=== PATIENT | male | born 1975 | race Hispanic/Latino ===

== ENCOUNTER 2017-04-24 08:21 | Inpatient (IN) | payer SELFPAY ==
[2017-04-24] MEDS ORDERED: Dexamethasone 4 mg/ml Vial ONE ×3 (09:08→12:05)
[2017-04-24] MEDS ORDERED: Ketorolac Tromethamine 30 MG/ML VIAL ONE (09:08)
[2017-04-24] MEDS ORDERED: Lidocaine Viscous Sol 2% 15 ml UD Cup ONE (09:12)
[2017-04-24] MEDS ORDERED: Mag-Al 1200 mg/1200 mg/30 ML UDCUP ONE (09:12)
[2017-04-24 09:30] LABS: Hematocrit 45.8 % (42.0-52.0); Mean Platelet Volume 9.6 fL (7.4-10.4); Red Blood Cell (RBC) Count 5.22 mill/uL (4.70-6.10); White Blood Cell (WBC) Count 22.2 thou/uL (4.8-10.8)
[2017-04-24 09:51] LABS: Band 22 % (5-11); Neutrophil 58 % (42-75); Reactive Lymphocytes 1 % (0-10)
--- NOTE | 2017-04-24 10:03 | CT ---
CT NECK WITH CONTRAST: Multiple axial tomograms were obtained through the neck with IV enhancement. Multiplanar reconstruc tion. HISTORY: Sore throat and difficulty swallowing. Fever. FINDINGS: Parotid gland, submandibular glands appear unremarkable. There is a 6-7 mm low dense nodule in the right lobe of thyroid. Nasopharynx unremarkable. There is enlargement of the palatine tonsils bilaterally. There is a small low-density focus measur ing 1.0 x 0.5 cm in the left peritonsillar area which could potentially represent a small developing peritonsillar abscess, although this is too small to represent a drainable abscess at this time. M ild enlargement of the lingual tonsils. Pharyngeal tonsils are not significant enlarged. The parapharyngeal space and retropharyngeal space appear unremarkable. Inspector Chief space. Carotid space unremarkable. Hypopharynx unremarkable. There are secretions seen in the hypopharynx. Larynx and glottic regions unremarkable. Lung apices are clear. The paranasal sinuses are well aerated; however, there is mucosal thickening in the floor of both ma xillary antra. Visualized mastoid air cells are clear. Review of the lymph node levels reveals mild prominence of level I submandibular nodes. They are 1 to 1.2 cm nodes bilaterally. There is adenopathy seen at level II bilaterally. Large jugulodigastric lymph nodes are seen on bot h sides measuring over 2 cm. No significant level III lymph nodes. There are a few scattered level IV nodes along the vascular chain bilaterally. Scattered nonspecific level V lymph nodes. IMPRESSION: Enlarged palatine tonsils. A low-density focus seen in the peritonsillar region on the left could p otentially represent a developing abscess, although this is not a drainable abscess at this time. T here is associated cervical adenopathy with adenopathy being especially prominent in the jugulodigas tric level II regions bilaterally. Infectious tonsillitis would be suspected given the history of f ever. Recommend close followup to ensure clearing. Tonsillar neoplasm is not excluded. POS: TAZ
[2017-04-24 10:30] LABS: ALT (SGPT) 28 U/L (8-55); AST (SGOT) 22 U/L (5-34); Alkaline Phosphatase 83 U/L (40-150); Anion Gap 12 mmol/L (10-20); BUN (Urea Nitrogen) 24 mg/dL (8.9-20.6); Bilirubin, Total 0.7 mg/dL (0.2-1.2); Calc. Creatinine Clearance 0 mL/min (70-130); Calcium 9.1 mg/dL (7.8-10.44); Carbon Dioxide 23 mmol/L (22-29); Chloride 108 mmol/L (98-107); Estimated GFR-MDRD Greater than 90; Globulin 3.9 g/dL (2.4-3.5); Protein, Total 7.6 g/dL (6.0-8.3)
[2017-04-24] MEDS ORDERED: Ampicillin/Sulbactam 3 GM in Sodium Chloride 0.9% 100 ML IVPB SCH (10:45)
[2017-04-24 12:39] VITALS: BMI 34.9
[2017-04-24] MEDS ORDERED: Acetaminophen 325 MG TAB PO PRN ×2 (12:42→13:07)
[2017-04-24] MEDS ORDERED: Ondansetron ODT 4 MG TAB PO PRN ×2 (12:42→13:07)
[2017-04-24] MEDS ORDERED: Ondansetron HCl/PF 4 MG/2 ML Vial IVP PRN ×2 (12:42→13:07)
[2017-04-24] MEDS ORDERED: Sodium Chloride 0.9% 1,000 ML IV SCH (12:45)
[2017-04-24] MEDS ORDERED: Diabetic Tussin 200 MG/10 ML UDCUP PO PRN (13:07)
[2017-04-24] MEDS ORDERED: hydrALAZINE 20 MG/ML VIAL SLOW IVP PRN (13:07)
[2017-04-24] MEDS ORDERED: Milk Of Magnesia 30 ML UDCUP PO PRN (13:07)
[2017-04-24] MEDS ORDERED: Chloraseptic Spray 180 ml Bottle PO PRN (13:07)
[2017-04-24] MEDS ORDERED: Loratadine 10 MG TAB PO PRN (13:07)
[2017-04-24] MEDS ORDERED: Artificial Tears 18 DROP/0.9 ML EA EYE PRN (13:07)
[2017-04-24] MEDS ORDERED: Senokot 8.6 MG TAB PO PRN (13:07)
[2017-04-24] MEDS ORDERED: Sodium Chloride 0.65% Nasal 44 ML BOT EA NARE PRN (13:07)
[2017-04-24] MEDS ORDERED: Mag-Al 1200 mg/1200 mg/30 ML UDCUP PO PRN (13:07)
[2017-04-24] MEDS ORDERED: HYDROcodone/Acetaminophen 5/325 mg Tablet PO PRN (13:07)
[2017-04-24] MEDS ORDERED: Zolpidem Tartrate 5 MG TAB PO PRN (13:07)
[2017-04-24] MEDS ORDERED: Eucerin (Mineral Oil/Petrolatum,White) 30 gm Jar TOP PRN (13:07)
[2017-04-24] MEDS ORDERED: Loperamide HCl 2 MG CAP PO PRN (13:07)
[2017-04-24] MEDS ORDERED: Ketorolac Tromethamine 30 MG/ML VIAL IVP PRN (13:09)
[2017-04-24] MEDS ORDERED: Iopamidol 370 76% 100 ML VIAL ONE (13:27)
[2017-04-24] MEDS ORDERED: Labetalol HCl 100 MG/20 ML VIAL SLOW IVP PRN (14:02)
--- NOTE | 2017-04-24 14:59 | HP ---
PRIMARY CARE PHYSICIAN: [facility] call admission. REASON FOR ADMISSION: Tonsillitis. HISTORY OF PRESENT ILLNESS: A 41-year-old male with no significant medical history who cam e to emergency room for evaluation of increasing sore throat for the last 3 days. The patient went to outpatient clinic and received penicillin injection, but he was not feeling better. He was havin g fever with chills. He was having sore throat. He was having difficulty to eat and swallow. The patient was also reporting that his pain medication was not taking care of his pain. He denies any stridor. He denies any nausea or vomiting. He denies any cough. He denies any chest pain, palpita tion, cough or shortness of breath. In the emergency room, the patient had CT soft tissue neck which showed enlarged palatine tonsils an d there was question of developing abscess. There was cervical lymphadenopathy, ENT doctor was noti fied. At this time, we are admitting this patient for acute tonsillitis and poor p.o. intake and th e patient is not able to swallow because of acute tonsillitis for hydration. REVIEW OF SYSTEMS: The following complete review of systems was negative, unless otherwise mentione d in the HPI or below: Constitutional: Weight loss or gain, ability to conduct usual activities. Skin: Rash, itching. Eyes: Double vision, pain. ENT/Mouth: Nose bleeding, neck stiffness, pain, tenderness. Cardiovascular: Palpitations, dyspnea on exertion, orthopnea. Respiratory: Shortness of breath, wheezing, cough, hemoptysis, fever or night sweats. Gastrointestinal: Poor appetite, abdominal pain, heartburn, nausea, vomiting, constipation, or diar shaq. Genitourinary: Urgency, frequency, dysuria, nocturia. Musculoskeletal: Pain, swelling. Neurologic/Psychiatric: Anxiety, depression. Allergy/Immunologic: Skin rash, bleeding tendency. Please see my HPI for pertinent positive and negative. All other review of systems reviewed and neg ative except as mentioned in the HPI. PAST MEDICAL HISTORY: Hypertension. PAST SURGICAL HISTORY: [place]grady teeth removal, tonsillectomy. PAST PSYCHIATRIC HISTORY: Reviewed and negative. SOCIAL HISTORY: Patient drinks alcohol on weekend. He smokes cigarettes. He denies any other illi cit drug abuse. FAMILY HISTORY: No strong family history of premature coronary artery disease, stroke or cancer. ALLERGIES: No known drug allergies. CURRENT HOME MEDICATIONS: The patient was taking Tylenol as needed basis. EMERGENCY ROOM COURSE: The patient is given Unasyn 3 grams, Toradol 60 mg, Decadron 10 mg, IV fluid 1 liter. The patient was given another dose of Decadron 10 mg, Toradol 30 mg, GI cocktail and IV f luid. PHYSICAL EXAMINATION: VITAL SIGNS: On arrival, blood pressure 152/89, pulse 112, respiratory rate 18, temperature 98.4, s aturation 96% on room air, and weight 104.3 kilograms. GENERAL: Patient is currently alert, awake, no obvious acute distress. HEAD: Normocephalic, atraumatic. EYES: Pupils round, reactive to light. Extraocular muscles intact. ENT: Oropharynx within normal limits. Tonsils are enlarged bilaterally with exudates. Lymph nodes palpable. NECK: Cervical lymphadenopathy, no JVD, no thyromegaly, no carotid bruits. LUNGS: Clear to auscultation without any rhonchi or rales. CARDIAC: S1, S2 regular without any murmur. ABDOMEN: Soft, bowel sounds present, nontender, nondistended. No organomegaly, no mass, no suprapu bic tenderness. BACK: Examination unremarkable, no CVA tenderness. EXTREMITIES: Upper extremity passive movements of all joints are normal. Lower extremity, no edema . Good peripheral pulsation. SKIN: No skin rash. HEMATOLOGICAL SYSTEM: No lymphadenopathy. PSYCHIATRIC: Normal affect. IMAGING AND SIGNIFICANT LABORATORY DATA: 1. CT soft tissue reported as enlarged palatine tonsil, peritonsillitis with developing abscess, bu t no drainable abscess at this point, cervical lymphadenopathy. 2. CBC: WBC 22.2, hemoglobin 15.3, platelet 194 with bandemia 22. BMP: Sodium 140, potassium 3.4 , chloride 108, carbon dioxide 23, BUN 24, creatinine 0.85, calcium 9.1. 3. LFT: AST 22, ALT 28, alkaline phosphatase 83, albumin 3.7. ASSESSMENT AND PLAN/IMPRESSION: 1. Acute peritonsillitis with developing abscess with sepsis. We will consult ENT. I spoke with E NT doctor and he reports that at this point patient does not need any surgery. He should get better with steroid as well as empiric antibiotic therapy. We will check streptococcal group A screen. T he patient will be on vancomycin and Zosyn as well as clindamycin and we will control his pain with Toradol and morphine. We will also continue with Decadron 4 mg IV q.8 hourly 3 doses today. 2. Dysphagia secondary to severe tonsillitis. 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 3. Dehydration. Patient will be given IV fluids with dextrose normal saline with KCl at 125 mL per hour. 4. Hypertension. The patient's blood pressure will be controlled with hydralazine and labetalol p. r.n. basis. At this point, the patient's blood pressure is high because of steroid as well as IV fl uid and pain. 5. Hypokalemia. We are replacing potassium with IV fluid and we will repeat basic metabolic panel tomorrow. 6. Obesity with body mass index 35. Weight loss education given. Healthy lifestyle measures discu ssed with the patient. 7. Tobacco and alcohol abuse. Counseling given to avoid smoking as well as alcohol abuse. 8. Deep venous thrombosis prophylaxis, Lovenox 40 mg subcu daily. 9. Gastrointestinal prophylaxis, Pepcid 20 mg p.o. b.i.d. 10. Code status: The patient is FULL CODE. Patient does not have any surrogate decision maker. Disposition plan based on clinical course. We are expecting patient's stay in hospital more than 2 midnights. Plan of care discussed with the patient in detail.
[2017-04-24] MEDS: Vancomycin HCl 1.5 GM in Sodium Chloride 0.9% 250 ML 300 ML IVPB SCH ×2 (16:40→22:46)
[2017-04-24] MEDS: Piperacillin/Tazobactam 4.5 GM in Sodium Chloride 0.9% 100 ML IVPB SCH ×2 (16:40→23:28)
[2017-04-24] MEDS: D5 0.9% NS w/ 20 mEq KCl 1,000 ML IV SCH ×2 (16:40→21:16)
[2017-04-24] MEDS ORDERED: Clindamycin/D5W 600 MG in Premix Bag 1 BAG IVPB SCH (18:00)
[2017-04-24] MEDS ORDERED: FLU VACC QS2017-18 36 mo. & older 0.5 ML SYRINGE IM ONE (21:00)
[2017-04-24] MEDS: Famotidine 20 MG TAB PO SCH (21:13)
[2017-04-24] MEDS: Dexamethasone 4 mg/ml Vial SLOW IVP SCH (21:14)
[2017-04-25] MEDS: Clindamycin/D5W 600 MG in Premix Bag 1 BAG IVPB SCH ×4 (02:00→22:02)
[2017-04-25] MEDS: Piperacillin/Tazobactam 4.5 GM in Sodium Chloride 0.9% 100 ML IVPB SCH ×4 (04:12→22:05)
[2017-04-25] MEDS: Dexamethasone 4 mg/ml Vial SLOW IVP SCH ×4 (04:13→22:15)
[2017-04-25] MEDS: D5 0.9% NS w/ 20 mEq KCl 1,000 ML IV SCH (04:16)
[2017-04-25 04:44] LABS: ALT (SGPT) 75 U/L (8-55); AST (SGOT) 65 U/L (5-34); Alkaline Phosphatase 82 U/L (40-150); Anion Gap 14 mmol/L (10-20); BUN (Urea Nitrogen) 24 mg/dL (8.9-20.6); Bilirubin, Total 0.7 mg/dL (0.2-1.2); Calc. Creatinine Clearance 182 mL/min (70-130); Calcium 9.2 mg/dL (7.8-10.44); Carbon Dioxide 20 mmol/L (22-29); Chloride 110 mmol/L (98-107); Estimated GFR-MDRD Greater than 90; Globulin 3.7 g/dL (2.4-3.5); Protein, Total 7.2 g/dL (6.0-8.3)
[2017-04-25 05:18] LABS: Band 15 % (5-11); Hematocrit 41.6 % (42.0-52.0); Mean Platelet Volume 8.9 fL (7.4-10.4); Neutrophil 74 % (42-75); Red Blood Cell (RBC) Count 4.71 mill/uL (4.70-6.10); White Blood Cell (WBC) Count 18.9 thou/uL (4.8-10.8)
[2017-04-25] MEDS: Vancomycin HCl 1.5 GM in Sodium Chloride 0.9% 250 ML 300 ML IVPB SCH ×2 (05:27→15:08)
[2017-04-25] MEDS: Famotidine 20 MG TAB PO SCH ×2 (08:54→22:04)
[2017-04-25] MEDS: Saccharomyces boulardii 250 MG CAP PO SCH (08:54)
[2017-04-25] MEDS: Enoxaparin Sodium 40 MG/0.4 ML SYRINGE SC SCH (08:55)
--- NOTE | 2017-04-25 10:41 | PDOC.PN ---
- Subjective Encounter Start Date: 04/25/17 Encounter Start Time: 08:45 -: old records requested/rev Patient seen and examined. No new complaints. No overnight events, feels better , less throat pain - Objective Resuscitation Status: Resuscitation Status FULL:Full Resuscitation MAR Reviewed: Yes Vital Signs & Weight: Vital Signs (12 hours) Temp Pulse Resp BP BP Pulse Ox 04/25/17 08:01 97.8 F 51 L 16 122/74 95 04/25/17 04:00 97.5 F L 69 20 100/58 L 93 L 04/25/17 00:00 97.7 F 56 L 20 101/58 L 94 L I&O: 04/24/17 04/25/17 04/26/17 06:59 06:59 06:59 Intake Total 3080 Balance 3080 Result Diagrams: 04/25/17 03:49 04/25/17 03:49 Phys Exam - Physical Examination Constitutional: NAD HEENT: PERRLA, moist MMs, sclera anicteric Neck: no JVD, supple Respiratory: no wheezing, no rales, no rhonchi Cardiovascular: RRR, no significant murmur, no rub Gastrointestinal: soft, non-tender, no distention, positive bowel sounds Musculoskeletal: no edema, pulses present Neurological: non-focal, normal sensation, moves all 4 limbs Psychiatric: normal affect, A&O x 3 Skin: no rash, normal turgor Dx/Plan (1) Peritonsillitis Code(s): J36 - PERITONSILLAR ABSCESS Status: Acute (2) Dysphagia Code(s): R13.10 - DYSPHAGIA, UNSPECIFIED Status: Acute (3) Hypertension Code(s): I10 - ESSENTIAL (PRIMARY) HYPERTENSION Status: Chronic (4) Obesity (BMI 30-39.9) Code(s): E66.9 - OBESITY, UNSPECIFIED Status: Chronic (5) Dehydration Code(s): E86.0 - DEHYDRATION Status: Resolved (6) Transaminitis Code(s): R74.0 - NONSPEC ELEV OF LEVELS OF TRANSAMNS & LACTIC ACID DEHYDRGNSE Status: Acute (7) Hypokalemia Code(s): E87.6 - HYPOKALEMIA Status: Resolved (8) Leucocytosis Code(s): D72.829 - ELEVATED WHITE BLOOD CELL COUNT, UNSPECIFIED Status: Acute - Plan cont current plan of care, continue antibiotics * start mechanical soft diet * continue vancomycin, zosyn, clindamycin * continue decadron today * repeat labs tomorrow * will consider discharge tomorrow if able to eat well * medication reviewed as below * symptomatic treatment. Review of Systems - Review of Systems Constitutional: negative: Fever, Chills, Sweats, Weakness, Malaise, Other ENT: Throat Pain. negative: Ear Pain, Ear Discharge, Nose Pain, Nose Discharge , Nose Congestion, Mouth Pain, Mouth Swelling, Throat Swelling, Other Respiratory: negative: Cough, Dry, Shortness of Breath, Hemoptysis, SOB with Excertion, Pleuritic Pain, Sputum, Wheezing Cardiovascular: negative: Chest Pain, Palpitations, Orthopnea, Paroxysmal Noc. Dyspnea, Edema, Light Headedness, Other Gastrointestinal: negative: Nausea, Vomiting, Abdominal Pain, Diarrhea, Constipation, Melena, Hematochezia, Other Genitourinary: negative: Dysuria, Frequency, Incontinence, Hematuria, Retention , Other Musculoskeletal: negative: Neck Pain, Shoulder Pain, Arm Pain, Back Pain, Hand Pain, Leg Pain, Foot Pain, Other Skin: negative: Rash, Lesions, South, Bruising, Other - Medications/Allergies Allergies/Adverse Reactions: Allergies Allergy/AdvReac Type Severity Reaction Status Date / Time No Known Allergies Allergy Verified 04/24/17 12:45 Medications: Current Medications Acetaminophen (Tylenol) 650 mg PO Q4H PRN PRN Reason: Headache/Fever or Pain Hydrocodone Bitart/Acetaminophen ([place] 5/325) 1 tab PO Q4H PRN PRN Reason: Moderate Pain (4-6) Al Hydroxide/Mg Hydroxide (Maalox) 30 ml PO Q6H PRN PRN Reason: Heartburn or Indigestion Artificial Tears (Tears Naturale) 0 drop EA EYE PRN PRN PRN Reason: Dry Eyes Dexamethasone (Decadron) 4 mg SLOW IVP 0400,1200,2000 [facility] Last Admin: 04/25/17 04:13 Dose: 4 mg Enoxaparin Sodium (Lovenox) 40 mg SC 0900 [facility] Last Admin: 04/25/17 08:55 Dose: 40 mg Famotidine (Pepcid) 20 mg PO BID [facility] Last Admin: 04/25/17 08:54 Dose: 20 mg Guaifenesin (Robitussin Sf) 200 mg PO Q4H PRN PRN Reason: Cough Hydralazine HCl (Apresoline) 10 mg SLOW IVP Q4H PRN PRN Reason: Systolic BP > 180 Vancomycin HCl 1.5 gm/ Sodium (Chloride) 300 mls @ 200 mls/hr IVPB 0600,1400, 2200 [facility] Last Admin: 04/25/17 05:27 Dose: 300 mls Clindamycin Phosphate/Dextrose (600 mg/ Device) 50 mls @ 100 mls/hr IVPB 0200, 0800,1400,2000 [facility] Last Admin: 04/25/17 08:55 Dose: 50 mls Piperacillin Sod/Tazobactam (Sod 4.5 gm/ Sodium Chloride) 100 mls @ 200 mls/hr IVPB 0300,0900,1500,2100 [facility] Last Admin: 04/25/17 10:04 Dose: 100 mls Ketorolac Tromethamine (Toradol) 15 mg IVP Q6H PRN PRN Reason: Moderate Pain (4-6) Stop: 04/29/17 13:10 Labetalol HCl (Normodyne) 10 mg SLOW IVP Q4H PRN PRN Reason: SBP Greater Than 180 Loperamide HCl (Imodium) 2 mg PO PRN PRN PRN Reason: Diarrhea/Loose Stools Loratadine (Claritin) 10 mg PO DAILYPRN PRN PRN Reason: Sinus Symptoms Magnesium Hydroxide (Milk Of Magnesium) 30 ml PO DAILYPRN PRN PRN Reason: Constipation Mineral Oil/White Petrolatum (Eucerin Cream) 0 gm TOP BIDPRN PRN PRN Reason: Dry Skin Miscellaneous Medication (Pharmacy To Dose) 1 each IVPB PRN PRN PRN Reason: Pharmacy to dose Morphine Sulfate (Morphine Sulfate) 4 mg SLOW IVP Q4H PRN PRN Reason: Severe Pain (7-10) Ondansetron HCl (Zofran Odt) 4 mg PO Q6H PRN PRN Reason: Nausea/Vomiting Ondansetron HCl (Zofran) 4 mg IVP Q6H PRN PRN Reason: Nausea/Vomiting Phenol (Chloraseptic [place] 180 Ml Bot) 0 ml PO PRN PRN PRN Reason: Sore Throat Saccharomyces Boulardii (Florastor) 250 mg PO DAILY [facility] Last Admin: 04/25/17 08:54 Dose: 250 mg Senna (Senokot) 2 tab PO HSPRN PRN PRN Reason: Constipation Sodium Chloride (Flush - Normal Saline) 10 ml IVF Q12HR [facility] Last Admin: 04/25/17 08:56 Dose: 10 ml Sodium Chloride (Flush - Normal Saline) 10 ml IVF PRN PRN PRN Reason: Saline Flush Last Admin: 04/25/17 04:13 Dose: 10 ml Sodium Chloride ([place] Nasal [place] 0.65%) 0 ml EA NARE QIDPRN PRN PRN Reason: Nasal Congestion Zolpidem Tartrate (Ambien) 5 mg PO HSPRN PRN PRN Reason: Insomnia
[2017-04-25 13:23] LABS: Vancomycin, Trough 25.1 ug/mL
[2017-04-26] MEDS: Vancomycin HCl 1 GM in Premix Bag 1 BAG IVPB SCH ×4 (00:10→22:42)
[2017-04-26] MEDS: Clindamycin/D5W 600 MG in Premix Bag 1 BAG IVPB SCH ×4 (02:35→19:59)
[2017-04-26] MEDS: Dexamethasone 4 mg/ml Vial SLOW IVP SCH ×3 (03:14→20:00)
[2017-04-26] MEDS: Piperacillin/Tazobactam 4.5 GM in Sodium Chloride 0.9% 100 ML IVPB SCH ×4 (03:15→21:40)
[2017-04-26 05:23] LABS: Band 9 % (5-11); Hematocrit 39.9 % (42.0-52.0); Mean Platelet Volume 9.2 fL (7.4-10.4); Neutrophil 74 % (42-75); Reactive Lymphocytes 1 % (0-10); Red Blood Cell (RBC) Count 4.52 mill/uL (4.70-6.10); White Blood Cell (WBC) Count 17.2 thou/uL (4.8-10.8)
[2017-04-26] MEDS: Saccharomyces boulardii 250 MG CAP PO SCH (08:37)
[2017-04-26] MEDS: Famotidine 20 MG TAB PO SCH ×2 (08:38→20:01)
[2017-04-26] MEDS: Enoxaparin Sodium 40 MG/0.4 ML SYRINGE SC SCH (08:39)
--- NOTE | 2017-04-26 11:45 | PDOC.PN ---
- Subjective Encounter Start Date: 04/26/17 Encounter Start Time: 09:20 Patient seen and examined. No new complaints. No overnight events - Objective Resuscitation Status: Resuscitation Status FULL:Full Resuscitation MAR Reviewed: Yes Vital Signs & Weight: Vital Signs (12 hours) Temp Pulse Resp BP BP BP BP 04/26/17 11:36 97.6 F 51 L 18 128/84 04/26/17 08:00 98.0 F 55 L 18 04/26/17 07:21 98.0 F 55 L 18 133/82 04/26/17 04:00 97.6 F 48 L 20 106/64 04/26/17 00:00 97.7 F 50 L 24 H 100/58 L Pulse Ox 04/26/17 11:36 95 04/26/17 08:00 95 04/26/17 07:21 95 04/26/17 04:00 96 04/26/17 00:00 95 I&O: 04/25/17 04/26/17 04/27/17 06:59 06:59 06:59 Intake Total 3080 910 Balance 3080 910 Result Diagrams: 04/26/17 04:09 04/25/17 03:49 Phys Exam - Physical Examination Constitutional: NAD HEENT: PERRLA, moist MMs, sclera anicteric Neck: no JVD, supple Respiratory: no wheezing, no rales, no rhonchi Cardiovascular: RRR, no significant murmur, no rub Gastrointestinal: soft, non-tender, no distention, positive bowel sounds Musculoskeletal: no edema, pulses present Neurological: non-focal, normal sensation, moves all 4 limbs Psychiatric: normal affect, A&O x 3 Skin: no rash, normal turgor Dx/Plan (1) Peritonsillitis Code(s): J36 - PERITONSILLAR ABSCESS Status: Acute (2) Dysphagia Code(s): R13.10 - DYSPHAGIA, UNSPECIFIED Status: Acute (3) Hypertension Code(s): I10 - ESSENTIAL (PRIMARY) HYPERTENSION Status: Chronic (4) Obesity (BMI 30-39.9) Code(s): E66.9 - OBESITY, UNSPECIFIED Status: Chronic (5) Dehydration Code(s): E86.0 - DEHYDRATION Status: Resolved (6) Transaminitis Code(s): R74.0 - NONSPEC ELEV OF LEVELS OF TRANSAMNS & LACTIC ACID DEHYDRGNSE Status: Acute - Plan cont current plan of care, continue antibiotics * still has bandemia, but improving * will prefer one more day iv antibiotics * dc decadron * medication reviewed as below * symptomatic treatment * tomorrow will change to oral antibiotics. Review of Systems - Review of Systems Constitutional: negative: Fever, Chills, Sweats, Weakness, Malaise, Other ENT: Throat Pain. negative: Ear Pain, Ear Discharge, Nose Pain, Nose Discharge , Nose Congestion, Mouth Pain, Mouth Swelling, Throat Swelling, Other Respiratory: negative: Cough, Dry, Shortness of Breath, Hemoptysis, SOB with Excertion, Pleuritic Pain, Sputum, Wheezing Cardiovascular: negative: Chest Pain, Palpitations, Orthopnea, Paroxysmal Noc. Dyspnea, Edema, Light Headedness, Other Gastrointestinal: negative: Nausea, Vomiting, Abdominal Pain, Diarrhea, Constipation, Melena, Hematochezia, Other Genitourinary: negative: Dysuria, Frequency, Incontinence, Hematuria, Retention , Other Musculoskeletal: negative: Neck Pain, Shoulder Pain, Arm Pain, Back Pain, Hand Pain, Leg Pain, Foot Pain, Other Skin: negative: Rash, Lesions, South, Bruising, Other - Medications/Allergies Allergies/Adverse Reactions: Allergies Allergy/AdvReac Type Severity Reaction Status Date / Time No Known Allergies Allergy Verified 04/24/17 12:45 Medications: Current Medications Acetaminophen (Tylenol) 650 mg PO Q4H PRN PRN Reason: Headache/Fever or Pain Hydrocodone Bitart/Acetaminophen ([place] 5/325) 1 tab PO Q4H PRN PRN Reason: Moderate Pain (4-6) Al Hydroxide/Mg Hydroxide (Maalox) 30 ml PO Q6H PRN PRN Reason: Heartburn or Indigestion Artificial Tears (Tears Naturale) 0 drop EA EYE PRN PRN PRN Reason: Dry Eyes Dexamethasone (Decadron) 4 mg SLOW IVP 0400,1200,2000 [facility] Last Admin: 04/26/17 03:14 Dose: 4 mg Enoxaparin Sodium (Lovenox) 40 mg SC 0900 [facility] Last Admin: 04/26/17 08:39 Dose: 40 mg Famotidine (Pepcid) 20 mg PO BID [facility] Last Admin: 04/26/17 08:38 Dose: 20 mg Guaifenesin (Robitussin Sf) 200 mg PO Q4H PRN PRN Reason: Cough Hydralazine HCl (Apresoline) 10 mg SLOW IVP Q4H PRN PRN Reason: Systolic BP > 180 Clindamycin Phosphate/Dextrose (600 mg/ Device) 50 mls @ 100 mls/hr IVPB 0200, 0800,1400,2000 [facility] Last Admin: 04/26/17 08:39 Dose: 50 mls Piperacillin Sod/Tazobactam (Sod 4.5 gm/ Sodium Chloride) 100 mls @ 200 mls/hr IVPB 0300,0900,1500,2100 [facility] Last Admin: 04/26/17 10:24 Dose: 100 mls Vancomycin HCl 1 gm/ Device 200 mls @ 200 mls/hr IVPB 0600,1400,2200 [facility] Last Admin: 04/26/17 05:55 Dose: 200 mls Ketorolac Tromethamine (Toradol) 15 mg IVP Q6H PRN PRN Reason: Moderate Pain (4-6) Stop: 04/29/17 13:10 Labetalol HCl (Normodyne) 10 mg SLOW IVP Q4H PRN PRN Reason: SBP Greater Than 180 Loperamide HCl (Imodium) 2 mg PO PRN PRN PRN Reason: Diarrhea/Loose Stools Loratadine (Claritin) 10 mg PO DAILYPRN PRN PRN Reason: Sinus Symptoms Magnesium Hydroxide (Milk Of Magnesium) 30 ml PO DAILYPRN PRN PRN Reason: Constipation Mineral Oil/White Petrolatum (Eucerin Cream) 0 gm TOP BIDPRN PRN PRN Reason: Dry Skin Miscellaneous Medication (Pharmacy To Dose) 1 each IVPB PRN PRN PRN Reason: Pharmacy to dose Morphine Sulfate (Morphine Sulfate) 4 mg SLOW IVP Q4H PRN PRN Reason: Severe Pain (7-10) Ondansetron HCl (Zofran Odt) 4 mg PO Q6H PRN PRN Reason: Nausea/Vomiting Ondansetron HCl (Zofran) 4 mg IVP Q6H PRN PRN Reason: Nausea/Vomiting Phenol (Chloraseptic [place] 180 Ml Bot) 0 ml PO PRN PRN PRN Reason: Sore Throat Saccharomyces Boulardii (Florastor) 250 mg PO DAILY [facility] Last Admin: 04/26/17 08:37 Dose: 250 mg Senna (Senokot) 2 tab PO HSPRN PRN PRN Reason: Constipation Sodium Chloride (Flush - Normal Saline) 10 ml IVF Q12HR [facility] Last Admin: 04/26/17 08:40 Dose: 10 ml Sodium Chloride (Flush - Normal Saline) 10 ml IVF PRN PRN PRN Reason: Saline Flush Last Admin: 04/25/17 04:13 Dose: 10 ml Sodium Chloride ([place] Nasal [place] 0.65%) 0 ml EA NARE QIDPRN PRN PRN Reason: Nasal Congestion Zolpidem Tartrate (Ambien) 5 mg PO HSPRN PRN PRN Reason: Insomnia
[2017-04-26 23:12] LABS: Vancomycin, Trough 13.3 ug/mL
[2017-04-27] MEDS: Clindamycin/D5W 600 MG in Premix Bag 1 BAG IVPB SCH ×4 (02:07→19:27)
[2017-04-27] MEDS: Piperacillin/Tazobactam 4.5 GM in Sodium Chloride 0.9% 100 ML IVPB SCH ×5 (03:10→20:42)
[2017-04-27] MEDS: Dexamethasone 4 mg/ml Vial SLOW IVP SCH ×3 (03:58→19:27)
[2017-04-27 05:02] LABS: ALT (SGPT) 65 U/L (8-55); AST (SGOT) 17 U/L (5-34); Alkaline Phosphatase 68 U/L (40-150); Anion Gap 12 mmol/L (10-20); BUN (Urea Nitrogen) 18 mg/dL (8.9-20.6); Bilirubin, Total 0.7 mg/dL (0.2-1.2); Calc. Creatinine Clearance 175 mL/min (70-130); Calcium 9.1 mg/dL (7.8-10.44); Carbon Dioxide 23 mmol/L (22-29); Chloride 105 mmol/L (98-107); Estimated GFR-MDRD Greater than 90; Globulin 3.2 g/dL (2.4-3.5); Protein, Total 6.5 g/dL (6.0-8.3)
[2017-04-27 05:05] LABS: Band 1 % (5-11); Hematocrit 40.5 % (42.0-52.0); Mean Platelet Volume 9.1 fL (7.4-10.4); Neutrophil 75 % (42-75); Red Blood Cell (RBC) Count 4.58 mill/uL (4.70-6.10); White Blood Cell (WBC) Count 14.8 thou/uL (4.8-10.8)
[2017-04-27] MEDS: Vancomycin HCl 1 GM in Premix Bag 1 BAG IVPB SCH ×4 (05:39→22:47)
[2017-04-27] MEDS: Saccharomyces boulardii 250 MG CAP PO SCH (08:28)
[2017-04-27] MEDS: Famotidine 20 MG TAB PO SCH ×2 (08:29→20:42)
[2017-04-27] MEDS: Enoxaparin Sodium 40 MG/0.4 ML SYRINGE SC SCH (08:29)
--- NOTE | 2017-04-27 11:31 | PDOC.PN ---
- Subjective Encounter Start Date: 04/27/17 Encounter Start Time: 09:20 Patient seen and examined. No new complaints. No overnight events - Objective Resuscitation Status: Resuscitation Status FULL:Full Resuscitation MAR Reviewed: Yes Vital Signs & Weight: Vital Signs (12 hours) Temp Pulse Resp BP Pulse Ox 04/27/17 07:27 97.5 F L 41 L 16 126/76 96 04/27/17 04:00 97.8 F 45 L 18 130/77 94 L 04/27/17 00:00 97.8 F 54 L 18 115/67 98 I&O: 04/26/17 04/27/17 04/28/17 06:59 06:59 06:59 Intake Total 910 1360 Balance 910 1360 Result Diagrams: 04/27/17 04:08 04/27/17 04:08 Phys Exam - Physical Examination Constitutional: NAD HEENT: PERRLA, moist MMs, sclera anicteric Neck: no JVD, supple Respiratory: no wheezing, no rales, no rhonchi Cardiovascular: RRR, no significant murmur, no rub Gastrointestinal: soft, non-tender, no distention, positive bowel sounds Musculoskeletal: no edema, pulses present Neurological: non-focal, normal sensation, moves all 4 limbs Psychiatric: normal affect, A&O x 3 Skin: no rash, normal turgor Dx/Plan (1) Peritonsillitis Code(s): J36 - PERITONSILLAR ABSCESS Status: Acute (2) Dysphagia Code(s): R13.10 - DYSPHAGIA, UNSPECIFIED Status: Acute (3) Hypertension Code(s): I10 - ESSENTIAL (PRIMARY) HYPERTENSION Status: Chronic (4) Obesity (BMI 30-39.9) Code(s): E66.9 - OBESITY, UNSPECIFIED Status: Chronic (5) Dehydration Code(s): E86.0 - DEHYDRATION Status: Resolved (6) Transaminitis Code(s): R74.0 - NONSPEC ELEV OF LEVELS OF TRANSAMNS & LACTIC ACID DEHYDRGNSE Status: Acute - Plan cont current plan of care, continue antibiotics * still has high wbc count, will prefer to continue iv antibiotics as ordered * will repeat cbc tomorrow, if wbc better then will discharge * medication reviewed as below * symptomatic treatment. Review of Systems - Review of Systems ENT: negative: Ear Pain, Ear Discharge, Nose Pain, Nose Discharge, Nose Congestion, Mouth Pain, Mouth Swelling, Throat Pain, Throat Swelling, Other Respiratory: negative: Cough, Dry, Shortness of Breath, Hemoptysis, SOB with Excertion, Pleuritic Pain, Sputum, Wheezing Cardiovascular: negative: Chest Pain, Palpitations, Orthopnea, Paroxysmal Noc. Dyspnea, Edema, Light Headedness, Other Gastrointestinal: negative: Nausea, Vomiting, Abdominal Pain, Diarrhea, Constipation, Melena, Hematochezia, Other Genitourinary: negative: Dysuria, Frequency, Incontinence, Hematuria, Retention , Other Musculoskeletal: negative: Neck Pain, Shoulder Pain, Arm Pain, Back Pain, Hand Pain, Leg Pain, Foot Pain, Other Skin: negative: Rash, Lesions, South, Bruising, Other - Medications/Allergies Allergies/Adverse Reactions: Allergies Allergy/AdvReac Type Severity Reaction Status Date / Time No Known Allergies Allergy Verified 04/24/17 12:45 Medications: Current Medications Acetaminophen (Tylenol) 650 mg PO Q4H PRN PRN Reason: Headache/Fever or Pain Hydrocodone Bitart/Acetaminophen ([place] 5/325) 1 tab PO Q4H PRN PRN Reason: Moderate Pain (4-6) Al Hydroxide/Mg Hydroxide (Maalox) 30 ml PO Q6H PRN PRN Reason: Heartburn or Indigestion Artificial Tears (Tears Naturale) 0 drop EA EYE PRN PRN PRN Reason: Dry Eyes Dexamethasone (Decadron) 4 mg SLOW IVP 0400,1200,2000 [facility] Last Admin: 04/27/17 03:58 Dose: 4 mg Enoxaparin Sodium (Lovenox) 40 mg SC 0900 [facility] Last Admin: 04/27/17 08:29 Dose: 40 mg Famotidine (Pepcid) 20 mg PO BID [facility] Last Admin: 04/27/17 08:29 Dose: 20 mg Guaifenesin (Robitussin Sf) 200 mg PO Q4H PRN PRN Reason: Cough Hydralazine HCl (Apresoline) 10 mg SLOW IVP Q4H PRN PRN Reason: Systolic BP > 180 Clindamycin Phosphate/Dextrose (600 mg/ Device) 50 mls @ 100 mls/hr IVPB 0200, 0800,1400,2000 [facility] Last Admin: 04/27/17 08:29 Dose: 50 mls Piperacillin Sod/Tazobactam (Sod 4.5 gm/ Sodium Chloride) 100 mls @ 200 mls/hr IVPB 0300,0900,1500,2100 [facility] Last Admin: 04/27/17 09:04 Dose: 100 mls Vancomycin HCl 1 gm/ Device 200 mls @ 200 mls/hr IVPB 0600,1400,2200 [facility] Last Admin: 04/27/17 05:39 Dose: 200 mls Ketorolac Tromethamine (Toradol) 15 mg IVP Q6H PRN PRN Reason: Moderate Pain (4-6) Stop: 04/29/17 13:10 Labetalol HCl (Normodyne) 10 mg SLOW IVP Q4H PRN PRN Reason: SBP Greater Than 180 Loperamide HCl (Imodium) 2 mg PO PRN PRN PRN Reason: Diarrhea/Loose Stools Loratadine (Claritin) 10 mg PO DAILYPRN PRN PRN Reason: Sinus Symptoms Magnesium Hydroxide (Milk Of Magnesium) 30 ml PO DAILYPRN PRN PRN Reason: Constipation Mineral Oil/White Petrolatum (Eucerin Cream) 0 gm TOP BIDPRN PRN PRN Reason: Dry Skin Miscellaneous Medication (Pharmacy To Dose) 1 each IVPB PRN PRN PRN Reason: Pharmacy to dose Morphine Sulfate (Morphine Sulfate) 4 mg SLOW IVP Q4H PRN PRN Reason: Severe Pain (7-10) Ondansetron HCl (Zofran Odt) 4 mg PO Q6H PRN PRN Reason: Nausea/Vomiting Ondansetron HCl (Zofran) 4 mg IVP Q6H PRN PRN Reason: Nausea/Vomiting Phenol (Chloraseptic [place] 180 Ml Bot) 0 ml PO PRN PRN PRN Reason: Sore Throat Saccharomyces Boulardii (Florastor) 250 mg PO DAILY [facility] Last Admin: 04/27/17 08:28 Dose: 250 mg Senna (Senokot) 2 tab PO HSPRN PRN PRN Reason: Constipation Sodium Chloride (Flush - Normal Saline) 10 ml IVF Q12HR [facility] Last Admin: 04/27/17 09:05 Dose: 10 ml Sodium Chloride (Flush - Normal Saline) 10 ml IVF PRN PRN PRN Reason: Saline Flush Last Admin: 04/27/17 03:59 Dose: 10 ml Sodium Chloride ([place] Nasal [place] 0.65%) 0 ml EA NARE QIDPRN PRN PRN Reason: Nasal Congestion Zolpidem Tartrate (Ambien) 5 mg PO HSPRN PRN PRN Reason: Insomnia
[2017-04-27 22:10] LABS: Vancomycin, Trough 12.6 ug/mL
[2017-04-28] MEDS: Clindamycin/D5W 600 MG in Premix Bag 1 BAG IVPB SCH ×2 (02:47→08:56)
[2017-04-28] MEDS: Dexamethasone 4 mg/ml Vial SLOW IVP SCH (03:41)
[2017-04-28] MEDS: Piperacillin/Tazobactam 4.5 GM in Sodium Chloride 0.9% 100 ML IVPB SCH ×2 (03:41→09:42)
[2017-04-28] MEDS ORDERED: Vancomycin HCl 1.25 GM in Sodium Chloride 0.9% 250 ML 250 ML IVPB SCH (06:00)
[2017-04-28 06:20] LABS: Band 1 % (5-11); Hematocrit 41.7 % (42.0-52.0); Mean Platelet Volume 9.4 fL (7.4-10.4); Neutrophil 54 % (42-75); Reactive Lymphocytes 10 % (0-10); Red Blood Cell (RBC) Count 4.73 mill/uL (4.70-6.10); White Blood Cell (WBC) Count 18.3 thou/uL (4.8-10.8)
[2017-04-28 07:36] VITALS: BP 124/70; TEMP 97.6
[2017-04-28] MEDS: Famotidine 20 MG TAB PO SCH (08:58)
[2017-04-28] MEDS: Saccharomyces boulardii 250 MG CAP PO SCH (08:58)
[2017-04-28] MEDS: Enoxaparin Sodium 40 MG/0.4 ML SYRINGE SC SCH (08:59)
--- NOTE | 2017-04-28 11:16 | DIS ---
DATE OF ADMISSION: 04/24/2017 DATE OF DISCHARGE: 04/28/2017 PRIMARY CARE PHYSICIAN: Macarnea Monae. DISCHARGE DISPOSITION: Home. PRIMARY DISCHARGE DIAGNOSES: 1. Peritonsillitis. 2. Sepsis. 3. Leukocytosis. 4. Dysphagia due to problem #1. 5. Abnormal liver function tests due to sepsis. 6. Dehydration, corrected. 7. Hypokalemia, corrected. SECONDARY DISCHARGE DIAGNOSIS: Obesity with body mass index 35. PRIMARY PROCEDURE/OPERATION: None. RADIOLOGICAL INVESTIGATION: Soft tissue neck CT scan showed peritonsillar cellulitis without abscess. SIGNIFICANT LABORATORY DATA: WBC 18.3, hemoglobin 13.6, and platelets 265. Sodium 136, potassium 4.2, BUN 18, creatinine 0.82, calcium 9.1, AST 17, ALT 65 , alkaline phosphatase 68, and albumin 3.3. Rapid Strep test negative. Blood culture negative. DISCHARGE MEDICATIONS: Augmentin 875 mg p.o. b.i.d. for 7 days and Florastor 250 mg p.o. daily for 7 days. CONTRAINDICATIONS: None. CODE STATUS: FULL CODE. INPATIENT SALES FINANCIAL ANALYST: Dr. Deandre Guallpa evaluated this patient while in hospital. TEST RESULTS PENDING ON DISCHARGE: None. ALLERGIES: No known drug allergy. DISCHARGE PLAN: Post hospital, patient will follow up with primary care physician. HOSPITAL COURSE: A 41-year-old male who was admitted to the hospital with fever , sore throat, throat pain, dysphagia and generalized weakness. This patient was admitted by me. Please see my HPI for further details. He had CT soft tissue neck and it was showing peritonsillar cellulitis without any abscess. Dr. Deandre Guallpa was consulted and he reviewed this patient's CT scan and he was not thinking that any surgery indicated and he recommended to continue treating with steroid antibiotic therapy. This patient was admitted in hospital because he was not tolerating any p.o. and he was having difficulty swallowing because of peritonsillar cellulitis. He was given IV fluid and his potassium was replaced. He was treated with Zosyn , clindamycin, and vancomycin. On discharge, we changed to Augmentin. The patient has significant clinical improvement. He is now able to swallow well without any problem and his dehydration corrected. He is afebrile, even though his white count is a little bit elevated on the day of discharge, but patient clinically improved and he wants to go home. While in hospital, we noted that he was having sinus bradycardia, but that remained asymptomatic. The patient is seen and examined at bedside today. All review of systems reviewed with him and negative. PHYSICAL EXAMINATION: VITAL SIGNS: Currently, temperature 97.6, pulse 45, respiratory rate 16, saturation 95%, blood pressure 124/70, and weight of 229 pounds. GENERAL: The patient is alert, awake, no acute distress. HEAD: Normocephalic, atraumatic. Pupils round and reactive to light. Extraocular muscle intact. ENT: Oropharynx within normal limits. Moist mucous membranes. No oral lesions. No pharyngeal erythema, no exudate. NECK: Supple. LUNGS: Clear. CARDIAC: S1, S2 regular without any murmur. ABDOMEN: Soft and benign. EXTREMITIES: No edema. NEUROLOGIC: Nonfocal examination. DISCHARGE INSTRUCTIONS: The patient is medically stable for discharge today. All new medication prescriptions sent to his pharmacy. Total time spent on discharge day more than 30 minutes MTDD
--- NOTE | 2017-04-29 15:54 | EKG ---
Test Reason : Blood Pressure : / mmHG Vent. Rate : 045 BPM Atrial Rate : 045 BPM P-R Int : 148 ms QRS Dur : 080 ms QT Int : 488 ms P-R-T Axes : 075 021 021 degrees QTc Int : [address] elevation, consider early repolarization Otherwise normal ECG Confirmed by SHARON LABOY ([id number]) on 04/29/2017 3:53:38 PM Referred By: NORA Confirmed By:SHARON LABOY
== END 2017-04-28 12:29 | disposition home or self-care (01) | DRG 872 ==
LOC: ERS 08:21 → T4-A 12:03
PROVIDERS: ADMIT Internal Medicine; ATTEND Internal Medicine
DX: A41.9 Sepsis, unspecified organism (principal); R13.10 Dysphagia, unspecified; I10 Essential (primary) hypertension; J36 Peritonsillar abscess; E86.0 Dehydration; E87.6 Hypokalemia; E66.9 Obesity, unspecified; Z68.35 Body mass index [BMI] 35.0-35.9, adult; F17.210 Nicotine dependence, cigarettes, uncomplicated; F10.10 Alcohol abuse, uncomplicated; R74.0 Nonspecific elevation of levels of transaminase and lactic acid dehydrogenase [LDH]
CPT/HCPCS: 36415; 70491; 80053; 80202; 85025; 87040; 87081; 87430; 93005; 93010; 96361; 96374; 96375; 96376; A4216; J0295; J1100; J1650; J1885; J2543; J3370; J3490; J7050

== ENCOUNTER 2024-02-25 14:20 | Outpatient (CLI) | payer OTHER | END 2024-02-25 14:21 | disposition home or self-care (01) | LOC: BICRAD 14:20 | PROVIDERS: ATTEND Family Medicine | DX: M54.50 Low back pain, unspecified (principal); M47.816 Spondylosis without myelopathy or radiculopathy, lumbar region; M47.817 Spondylosis without myelopathy or radiculopathy, lumbosacral region | CPT/HCPCS: 72100 ==